=== PATIENT | male | born 1970 | race Caucasian/White ===

== ENCOUNTER 2021-05-05 10:04 | Outpatient (CLI) | payer MEDICARE, SELFPAY ==
--- NOTE | ~2021-05-05 | XR_ITS ---
EXAMINATION: XR hip RT min 2V EXAM DATE: 05/05/2021 10:32 INDICATION: Low back and right hip pain x6 months, no injury . TECHNIQUE: Right hip frontal, 'frog leg' projections for interpretation. There is no prior study fo r comparison. FINDINGS: Smooth right hip femoral head contour, no radiographic evidence of avascular necrosis. The re is mild right hip primary osteoarthritis. There are no acute fractures or dislocations identified . There is no subcutaneous gas. The soft tissue is unremarkable. There are no radiopaque foreign bodies. IMPRESSION: Mild right hip osteoarthritis. Reviewed, dictated and finalized at location B.
--- NOTE | ~2021-05-05 | XR_ITS ---
EXAMINATION: XR foot RT min 3V EXAM DATE: 05/05/2021 10:32 INDICATION: Dorsum right foot pain x6 months, no injury. TECHNIQUE: Right foot dorsoplantar, lateral and oblique projections obtained and reviewed. There is no prior study for comparison. FINDINGS: Right metatarsal bones unremarkable. Small inferior calcaneal spur.. There are no bony er osions identified. The joint spaces are uniform. There are no acute fractures or dislocations iden tified. There is no subcutaneous gas. The soft tissue is unremarkable. There are no radiopaque fo reign bodies. IMPRESSION: Small right calcaneal inferior spur. Reviewed, dictated and finalized at location B.
--- NOTE | ~2021-05-05 | XR_ITS ---
EXAMINATION: XR lumbar spine 2-3V EXAM DATE: 05/05/2021 10:32 INDICATION: Low back and right hip pain x6 months, no injury. TECHNIQUE: Lumber spine frontal, lateral, lateral L5-S1 projections for interpretation. Comparison is made to prior examination from 01/07/2017. FINDINGS: Interval development of 4 mm anterolisthesis L4 on L5. No spondylolysis suspected. Mild di ffuse lumbar disc disease. Mild aortic arterial sclerosis. Mild to moderate facet arthropathy. Mild p rogression spondylosis compared to prior study. IMPRESSION: 1. L4-5 grade 1 anterolisthesis. 2. Mild to moderate arthropathy, mild disc disease. Reviewed, dictated and finalized at location B.
== END 2021-05-05 10:05 | disposition home or self-care (01) ==
LOC: ANHIMG 10:10
PROVIDERS: PCP Family Medicine Adolescent Medicine; Visit Provider Physician Assistant
DX: M47.816 Spondylosis without myelopathy or radiculopathy, lumbar region (principal); M77.31 Calcaneal spur, right foot; M16.11 Unilateral primary osteoarthritis, right hip
CPT/HCPCS: 72100; 73502; 73630

== ENCOUNTER → 2022-02-11 14:26 | Outpatient (CLI) | payer MEDICARE, SELFPAY ==
--- NOTE | ~2022-02-11 | XR_ITS ---
XR lumbar spine 2-3V DATE: 02/11/2022 14:44 INDICATION: Worsening low back pain. Right sacroiliac pain. TECHNIQUE: AP, lateral, coned lateral lumbosacral views COMPARISON: 05/05/2021 lumbar spine FINDINGS: There is suggestion of T12 mild to moderate compression fracture deformities since . This area is not optimally demonstrated on this lumbar spine radiographic examination. AP and late ral views centered at T12 would be helpful for further evaluation. Normal alignment of the lumbar spine with exception of grade 1 anterolisthesis at L4-5 due to degener ative change at the apophyseal joints which is prominent L4-5 and L5-S1 in particular. Moderate degenerative disc disease at L1-2. Mild degenerative disease at L2-3 and L3-4. Moderately prominent degenerative disc disease including vacuum phenomenon at L4-5 and L5-S1. Included lower thoracic and lumbar pedicles are intact. No lumbar spine fracture or bone destruction is detected. Normal alignment at the sacroiliac joints. IMPRESSION: Suggestion of compression fracture at T12 since 05/05/2021; radiograph centered at T12 are recommended for more optimal evaluation Multilevel degenerative disc disease, greatest at L1-2, L4-5 and L5-S1 Grade 1 anterolisthesis at L4-5 due to degenerative change at the apophyseal joints Reviewed, dictated and finalized at location A. R WAXER IMPRESSION: Suggestion of compression fracture at T12 since 05/05/2021; radiogra ph centered at T12 are recommended for more optimal evaluation Multilevel degenerative disc disease, greatest at L1-2, L4-5 and L5-S1 Grade 1 anterolisthesis at L4-5 due to degenerative change at the apophyseal marquis ints
== END ==
PROVIDERS: PCP Family Medicine Adolescent Medicine; Visit Provider Family Medicine Adolescent Medicine
DX: M51.36 Other intervertebral disc degeneration, lumbar region (principal); M51.37 Other intervertebral disc degeneration, lumbosacral region
CPT/HCPCS: 72100

== ENCOUNTER 2023-05-25 13:04 | Outpatient (CLI) | payer MEDICARE, SELFPAY ==
--- NOTE | ~2023-05-25 | XR_ITS ---
Clinical Indication: Dyspnea PA and lateral views of the chest: Comparison: None Findings: The lungs are clear, without evidence of focal consolidation or pleural effusion. Cardiome diastinal silhouette is within normal limits. Bones and soft tissues are unremarkable. Impression: Normal chest. Reviewed, dictated and finalized at location . Impression: Normal chest.
== END 2023-05-25 13:05 ==
LOC: MICIMG 13:05
PROVIDERS: PCP Family Medicine Adolescent Medicine; Visit Provider Family Medicine Adolescent Medicine
DX: R06.09 Other forms of dyspnea (principal)
CPT/HCPCS: 71046

== ENCOUNTER → 2024-11-29 10:18 | Outpatient (CLI) | payer MEDICARE, SELFPAY ==
--- NOTE | ~2024-11-29 | XR_ITS ---
XR lumbar spine 2-3V Indication: M54.50 - Low back pain, years radiates into LT leg Comparison: None Findings: Grade 1 anterolisthesis of L4 on L5, no fracture. Moderate loss of disc height throughout. Soft tissues unremarkable Impression: No acute abnormality. Reviewed, dictated and finalized at location P. Impression: No acute abnormality.
== END ==
PROVIDERS: PCP Nurse Practitioner Family; Visit Provider Nurse Practitioner Family
DX: M54.50 Low back pain, unspecified (principal); G89.29 Other chronic pain; G60.9 Hereditary and idiopathic neuropathy, unspecified
CPT/HCPCS: 72100

== ENCOUNTER 2024-12-05 09:13 | Outpatient (CLI) | payer MEDICARE, SELFPAY ==
--- NOTE | ~2024-12-05 | US_ITS ---
EXAMINATION: US arterial ankle brachial ind DATE: 12/05/2024 09:43 INDICATION: Peripheral vascular disease TECHNIQUE: Segmental pressures and plethysmographic and Doppler waveforms of the brachial and lower extremity arteries were obtained. COMPARISON: None. FINDINGS: Right and left brachial artery pressures of 143 mm Hg and 155 mm Hg, respectively, are concordant (normal difference <= 30 mmHg). The right ankle-brachial index (RACHAEL) is 0.97 (normal >= 0.9-1.0). The right great toe-brachial index (TBI) is 0.58 (normal >= 0.65). Arterial Doppler waveforms are biphasic with brisk systolic upstrokes at both right posterior tibial and dorsalis pedis arteries. The left RACHAEL is 0.89. The left TBI is 0.60. Arterial Doppler waveforms are biphasic with brisk systolic upstrokes at both left posterior tibial and dorsalis pedis arteries. IMPRESSION: 1. Mild arterial occlusive disease to the left lower limb with mildly decreased left RACHAEL and TBI. Right RACHAEL and TBI measurements remain at the lower limits of normal. Reviewed, dictated and finalized at location A.
== END 2024-12-05 09:14 | disposition home or self-care (01) ==
LOC: CHSIMG 09:13
PROVIDERS: PCP Nurse Practitioner Family; Visit Provider Nurse Practitioner Family
DX: I73.9 Peripheral vascular disease, unspecified (principal); M54.50 Low back pain, unspecified; G89.29 Other chronic pain; G60.9 Hereditary and idiopathic neuropathy, unspecified
CPT/HCPCS: 93922

== ENCOUNTER 2025-01-12 09:17 | Outpatient (CLI) | payer MEDICARE, SELFPAY ==
--- NOTE | ~2025-01-12 | MR_ITS ---
EXAMINATION: MR lumbar spine wo con DATE: 01/12/2025 09:54 INDICATION: Low back pain. Left lower extremity radiculopathy. TECHNIQUE: Magnetic resonance imaging (MRI) of the lumbar spine was performed without intravenous contrast. COMPARISON: Lumbar spine MRI 05/28/2017 FINDINGS: There is 5 degrees levocurvature of lumbar spine. There is 6 mm anterolisthesis of L4 on L5 and 3 mm anterolisthesis of L5 on S1. There is mild chronic anterior wedging of T12 vertebral body. There is mildly decreased disc height at L1-L2 and L3-L4, moderately decreased disc height at L4-L5, and severely decreased disc height at L5-S1. The distal spinal cord signal intensity is normal. The conus medullaris is at T12-L1. The following disc levels are specifically discussed: L1-L2: The disc is bulging. There is moderate right and mild left facet joint osteoarthritis. There is no neural foraminal stenosis. There is mild central canal stenosis. L2-L3: The disc is bulging. There is severe bilateral facet joint osteoarthritis. There is mild bilateral neural foraminal stenosis. There is mild central canal stenosis. L3-L4: The disc is bulging. There is severe bilateral facet joint osteoarthritis. There is mild bilateral neural foraminal stenosis. There is mild central canal stenosis. L4-L5: The disc is bulging. There is severe bilateral facet joint osteoarthritis. There is mild bilateral neural foraminal stenosis. There is mild central canal stenosis. L5-S1: The disc is bulging with superimposed left subarticular zone extrusion with mass effect on left S1 nerve root in left lateral recess. There is severe bilateral facet joint osteoarthritis. There is mild bilateral neural foraminal stenosis. There is mild central canal stenosis at the midline. There is severe stenosis of left lateral recess. IMPRESSION: 1. Severe lumbar spondylosis, worsened from 05/28/2017. Of note, an extrusion at L5-S1 exerts mass effect on left S1 nerve root. Reviewed, dictated and finalized at location E. DATA DEVELOPER
== END 2025-01-12 09:18 | disposition home or self-care (01) ==
LOC: CHSIMG 09:18
PROVIDERS: PCP Family Medicine Adolescent Medicine; Visit Provider Family Medicine Adolescent Medicine
DX: M54.32 Sciatica, left side (principal); R29.818 Other symptoms and signs involving the nervous system; M54.50 Low back pain, unspecified; M43.06 Spondylolysis, lumbar region
CPT/HCPCS: 72148